=== PATIENT | male | born 1995 | race Caucasian/White ===

== ENCOUNTER 2017-07-30 14:27 | Emergency (ER) | payer OTHER ==
[~2017-07-30] VITALS: Ht 172.7 cm; Wt 90.8 kg
[2017-07-30 14:30] VITALS: BP 134/75
[2017-07-30] MEDS ORDERED: LIDOCAINE-MPF 1%, 5ML ONE ×2 (14:39→14:40)
[2017-07-30] MEDS ORDERED: DIPH,PERTUSS(ACELL),TET VAC/PF 0.5 ML IM-VACC ONE ×2 (14:40→15:00)
[2017-07-30] MEDS ORDERED: LIDOCAINE-MPF 1%, 5ML INFIL ONE (15:00)
[2017-07-30] MEDS ORDERED: BACITRACIN ZINC OINT 500U/GM, 0.9 GM ONE (15:52)
== END 2017-07-30 16:58 | disposition home or self-care (01) ==
LOC: ED 15:00
DX: S81.012A Laceration without foreign body, left knee, initial encounter (principal); W26.0XXA Contact with knife, initial encounter; Y93.89 Activity, other specified; Y92.098 Other place in other non-institutional residence as the place of occurrence of the external cause; Y99.8 Other external cause status
CPT/HCPCS: 12004; 90715; 96372; 99283; 99284

== ENCOUNTER 2018-02-01 06:45 | Emergency (ER) | payer OTHER ==
[~2018-02-01] VITALS: Ht 172.7 cm; Wt 96.3 kg
[2018-02-01 06:48] VITALS: BP 131/76
[2018-02-01] MEDS ORDERED: HYDROcodone/APAP 5/325 TABLET PO PRN (07:30)
[2018-02-01] MEDS ORDERED: HYDROcodone/APAP 5/325 TABLET ONE (07:43)
== END 2018-02-01 09:04 | disposition home or self-care (01) ==
LOC: ED 07:53
DX: S61.213A Laceration without foreign body of left middle finger without damage to nail, initial encounter (principal); W20.8XXA Other cause of strike by thrown, projected or falling object, initial encounter; Y93.89 Activity, other specified; Y92.098 Other place in other non-institutional residence as the place of occurrence of the external cause; Y99.8 Other external cause status
CPT/HCPCS: 29130; 99284